=== PATIENT | male | born 1975 | race Caucasian/White ===

== ENCOUNTER → 2017-10-18 | Outpatient (CLI) | payer MEDICAID | LOC: FIMAGING 08:06 | PROVIDERS: ATTEND Nurse Practitioner | DX: R74.8 Abnormal levels of other serum enzymes (principal); K76.0 Fatty (change of) liver, not elsewhere classified ==

== ENCOUNTER 2018-05-09 10:30 | Emergency (ER) | payer MEDICAID ==
--- NOTE | 2018-05-09 11:34 | EDPHY ---
H & P Time Seen by Provider: 05/09/18 11:31 HPI/ROS: CHIEF COMPLAINT: Right lower abdominal pain HISTORY OF PRESENT ILLNESS: Patient had a kidney stone once before and started with symptoms in his right lower abdomen about 2 and half days ago. [place] just like previous kidney stone. Was pretty severe associated with nausea and vomiting for the 1st day and then got better. Today it was worse and radiated to the right flank. He had nausea vomiting and vomited a small amount of bright red blood. Presents to the ER with pain which was moderate although when I see him it is now completely resolved. Just before resolution it started radiating down to his groin and right testicle and now is completely gone. REVIEW OF SYSTEMS: Eye: no change in vision ENT: no sore throat Cardiac: no chest pain or syncope Pulmonary: no cough or SOB Abdomen: HPI Musculoskeletal: Radiates to the flank Skin: no rash Neuro: no headache Constitutional: no fever : No hematuria but a little bit darker this morning, no dysuria A comprehensive 10 point review of systems is otherwise negative aside from elements mentioned in the history of present illness. PAST MEDICAL HISTORY: HIV and hypertension, kidney stones Social history: Primary care is [facility] General Appearance: Alert and conversant, cooperative. Eyes: No scleral icterus. ENT, Mouth: Normal mucous membranes. Respiratory: Normal respiratory effort, breath sounds equal, lungs are clear to auscultation. Cardiovascular: Regular rate and rhythm. Gastrointestinal: Abdomen is soft and non tender. No McBurney's point tenderness. Normal male . Does have a penile piercing. No drainage or discharge in skin around that is not red or swollen. Neurological: Alert, face symmetric, normal motor and sensory in extremities. Skin: Warm and dry, no rashes. Musculoskeletal: No peripheral edema. Psychiatric: Not agitated. Emergency Department course/MDM: Patient thinks he passed a kidney stone which I think is a reasonable diagnosis. Clinically does not have acute appendicitis or testicular torsion or other acute surgical abdominal process. His 1 episode today sounds much more like Kym-Agee tear than acute upper gastrointestinal bleeding. Imaging discussed, patient declines. Urinalysis reviewed, more red blood cells than white blood cells, I think infection is unlikely. He would like to go home and no further diagnostics or therapeutics was think is reasonable. He will see his primary care provider tomorrow. Smoking Status: Former smoker Constitutional: Initial Vital Signs Temperature (C) 37.3 C 05/09/18 10:35 Heart Rate 89 05/09/18 10:35 Respiratory Rate 18 05/09/18 10:35 Blood Pressure 156/111 H 05/09/18 10:35 O2 Sat (%) 97 05/09/18 10:35 O2 Delivery Mode Room Air Allergies/Adverse Reactions: No Known Allergies Allergy (Verified 05/09/18 10:41) Home Medications: Medication Instructions Recorded Dolutegravir Sodium [Tivicay] 10 mg PO 05/09/18 Emtricitabine/Tenofov Alafenam 1 each PO 05/09/18 [Descovy 200-25 mg Tablet] Hydrochlorothiazide [HCTZ (*)] 25 mg PO DAILY 05/09/18 Propranolol HCl [Inderal 40mg (*)] 40 mg PO 05/09/18 Medical Decision Making - Data Points Laboratory Results: 05/09/18 10:45 Urine Color RADHIKA Urine Appearance CLEAR Urine pH 6.0 (5.0-7.5) Ur Specific [place] 1.032 H (1.002-1.030) Urine Protein 2+ H (NEGATIVE) Urine Ketones 2+ H (NEGATIVE) Urine Blood NEGATIVE (NEGATIVE) Urine Nitrate NEGATIVE (NEGATIVE) Urine Bilirubin NEGATIVE (NEGATIVE) Urine Urobilinogen NEGATIVE EU EU (0.2-1.0) Ur Leukocyte Esterase NEGATIVE (NEGATIVE) Urine RBC 10-15 /hpf H /hpf (0-3) Urine WBC 3-5 /hpf H /hpf (0-3) Ur Epithelial Cells TRACE /lpf /lpf (NONE-1+) Urine Bacteria TRACE /hpf H /hpf (NONE SEEN) Urine Mucus 1+ /lpf /lpf (NONE-1+) Urine Glucose NEGATIVE (NEGATIVE) Departure - Departure Disposition: Home, Routine, Self-Care Clinical Impression: Renal colic on right side Condition: Good Instructions: Renal Colic (ED) Referrals: Emperatriz Do NP [Certified Nurse Practioner] - 1 day without fail
[2018-05-09 12:01] VITALS: BP 148/102
== END 2018-05-09 12:06 | disposition home or self-care (01) ==
DX: N23 Unspecified renal colic (principal); B20 Human immunodeficiency virus [HIV] disease; I10 Essential (primary) hypertension; Z87.891 Personal history of nicotine dependence